=== PATIENT | male | born 2000 | race Two or more races ===

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

== ENCOUNTER 2023-01-13 23:35 | Emergency (ER) | payer MEDICAID ==
[~2023-01-13] VITALS: Ht 177.8 cm; Wt 104.5 kg
[2023-01-13 23:42] VITALS: BP 118/65
[2023-01-13] MEDS ORDERED: ACETAMINOPHEN 500 MG TABLET PO ONE (23:45)
[2023-01-13] MEDS ORDERED: KETOROLAC TROMETHAMINE 30 MG/ML VIAL IM ONE (23:45)
== END 2023-01-14 01:03 | disposition left against medical advice (07) ==
LOC: EDBD 23:36 → EMS 23:36
DX: M25.521 Pain in right elbow (principal)
CPT/HCPCS: 99283; 96372; J1885

== ENCOUNTER 2024-10-10 13:06 | Emergency (ER) | payer SELFPAY ==
[~2024-10-10] VITALS: Ht 182.9 cm; Wt 106.2 kg
[2024-10-10 13:18] VITALS: TEMP 98.2
[2024-10-10 13:47] LABS: BASOPHILS % (AUTO) 0.6 % (0.0-2.0); EOSINOPHILS % (AUTO) 1.7 % (1.0-6.0); HEMATOCRIT 50.2 % (41-53); HEMOGLOBIN 16.9 g/dL (13.5-17.5); LYMPHOCYTES # (AUTO) 1.5 K/uL (1.0-4.8); LYMPHOCYTES % (AUTO) 20.6 % (22.0-44.0); MEAN CORPUSCULAR HEMOGLOBIN 30.2 pg (26.0-34.0); MEAN CORPUSCULAR HGB CONC 33.7 G/dL (31.0-37.0); MEAN CORPUSCULAR VOLUME 90 fL (80-100); NEUTROPHILS # (AUTO) 4.7 K/uL (1.8-7.7); NEUTROPHILS % (AUTO) 64.1 % (40.0-70.0); PLATELET COUNT (AUTO) 182 K/uL (150-450); RED CELL DISTRIBUTION WIDTH 13.1 % (11.5-14.5); WHITE BLOOD COUNT (AUTO) 7.4 K/uL (4.5-11.0)
[2024-10-10 14:06] LABS: ANION GAP 8 mmol/L (8-16); CALCIUM, TOTAL 9.3 mg/dL (8.8-10.5); CARBON DIOXIDE 27 mmol/L (22-29); CHLORIDE 100 mmol/L (98-107); CREATININE 1.01 mg/dL (0.60-1.30); GLOMERULAR FILTR. RATE CALC > 60 mL/min (>60); GLUCOSE,RANDOM 104 mg/dL (70-110); SODIUM SERUM 135 mmol/L (136-145); UREA NITROGEN, BLOOD 14 mg/dL (7-18)
[2024-10-10 14:07] LABS: LIPASE 16 U/L (16-77)
[2024-10-10] MEDS: ONDANSETRON HCL 4 MG/2 ML VIAL IVP ONE (14:16)
[2024-10-10] MEDS: KETOROLAC TROMETHAMINE 30 MG/ML VIAL IVP ONE (14:16)
[2024-10-10] MEDS: MAG HYDROX/ALUMINUM HYD/SIMETH 30 ML SUSPENSION UDCUP PO ONE (14:16)
[2024-10-10] MEDS: FAMOTIDINE 20 MG/2 ML VIAL IVP ONE (14:16)
[2024-10-10] MEDS: SODIUM CHLORIDE 0.9% 1,000 ML IV ONE (14:17)
[2024-10-10] MEDS ORDERED: ONDA-104 PO (14:40)
[2024-10-10 15:00] VITALS: BP 127/79; PULSE 73; RESP 18; O2SAT 98
== END 2024-10-10 15:43 | disposition home or self-care (01) ==
LOC: EMS 13:08
DX: K52.9 Noninfective gastroenteritis and colitis, unspecified (principal); R11.2 Nausea with vomiting, unspecified; F12.90 Cannabis use, unspecified, uncomplicated; F17.210 Nicotine dependence, cigarettes, uncomplicated
CPT/HCPCS: 99284; 96374; 96375; 96361; 80048; 83690; 85025; 36415; J3490; J1885; J2405; J7030